=== PATIENT | female | born 1990 | race African-American/Black ===

== ENCOUNTER 2025-10-09 09:22 | Emergency (ER) | payer OTHER, SELFPAY ==
--- NOTE | ~2025-10-09 | US_ITS ---
EXAMINATION: US OB <=14 wk fetus w TV DATE: 10/09/2025 11:48 INDICATION: Abnormal bleeding during first trimester of TECHNIQUE: Real-time pelvic ultrasound utilizing both a transvaginal and transabdominal probe was performed. The interpreting radiologist was not present for the study. COMPARISON: None. FINDINGS: The uterus measures 14.2 x 8.7 x 8.3 cm. There is an intrauterine gestational sac. A yolk sac and pole are identified. The crown rump length measures 9 mm on the transvaginal imaging, which correlates with an estimated gestational age of 6 weeks and 6 days. The pole measurement on the transvaginal imaging however appears slightly exaggerated relative to the apparent size on the provided transabdominal imaging which measures roughly 4 to 5 mm and on which the sac and pole appear better delineated. heart motion was unable to be identified on the M-mode Doppler imaging however there is suggestion of some subtle motion at the pole on the cine grayscale imaging. Large heterogeneously hypoechoic uterine fibroids at the posterior body of the uterus measuring 7.9 cm in maximal diameter. The right ovary measures 3.4 x 3.3 x 2.8 cm. Vascular flow with arterial waveforms identified in the right ovary on color Doppler. The left ovary is not visualized. There is no free fluid in the pelvis. IMPRESSION: 1. Single intrauterine gestational sac with pole with indeterminate cardiac activity. 2. Gestational age by ultrasound based on measurement from the transvaginal imaging of 6 weeks 6 day(s) +/- 4 day(s) with ultrasound estimated date of delivery (CHELA) of 05/29/2026. The crown-rump length is however may be exaggerated, appearing subtly smaller of 4-5 mm on the transabdominal imaging. Consider short interval follow-ups ultrasound to reassess for estimated gestational age and confirm cardiac activity. 3. 7.9 cm uterine fibroid. Reviewed, dictated and finalized at location [facility]. [facility] IMPRESSION: 1. Single intrauterine gestational sac with pole with indeterminate cardi ac activity. 2. Gestational age by ultrasound based on measurement from the transvaginal im aging of 6 weeks 6 day(s) +/- 4 day(s) with ultrasound estimated date of delive ry (CHELA) of 05/29/2026. The crown-rump length is however may be exaggerated, appe aring subtly smaller of 4-5 mm on the transabdominal imaging. Consider short in terval follow-ups ultrasound to reassess for estimated gestational age and conf irm cardiac activity. 3. 7.9 cm uterine fibroid.
[2025-10-09 09:31] VITALS: BP 142/80; PULSE 87; RESP 16; TEMP 36.5; O2SAT 97
--- OUTSIDE RECORDS SUMMARY | 2025-10-09 10:23 | XMS_ITS | Clinical Summary ---
Author Organization [facility] Address [address] [place] [address] Phone Care Team Providers Care Water And Fire Technician Name Role Phone Molly Miller APRN, CNP Primary Care Provider [phone] Social History Tobacco Use Types Packs/Day Years Used Date Smoking Tobacco: Never Assessed Comments Unknown Sex and Gender Information Value Date Recorded Sex Assigned at Not on file Legal Sex Female 8:30 AM CDT Gender Identity Not on file Sexual Orientation Not on file Plan of Treatment Not on file Care Teams Water And Fire Technician Relationship Specialty Start Date End Date Molly Miller, CAROL NEELY [address] [address] PCP - General Advanced Practice Nurse 05/01/25
[2025-10-09 10:42] VITALS: BP 130/81; PULSE 91; RESP 18; O2SAT 100
[2025-10-09 10:48] LABS: Hematocrit 41.3 % (37.0-47.0); Hemoglobin 13.4 g/dL (12.0-15.0); Immature Granulocyte Percent A 0.4 % (0-0.5); Lymphocytes Absolute Auto 2.70 K/mm3 (0.9-3.2); Mean Corpuscular HGB Conc 32.4 g/dl (32-36); Mean Corpuscular Hemoglobin 27.5 pg (26-34); Mean Corpuscular Volume 84.6 fl (80-100); Nucleated Red Blood Cells Absolute Auto 0.000 K/mm3 (0.0-0.012); Nucleated Red Blood Cells Perc 0.0 % (0.0-0.2); Platelet Count Result 347 k/mm3 (150-375); Red Blood Count 4.88 M/mm3 (4.2-5.4); White Blood Count 7.7 K/mm3 (4.5-10.0)
[2025-10-09 10:51] LABS: Add Urine Microscopic? YES; Appearance Urine Clear (Clear); Glucose Urine UA Negative (Negative); Leukocyte Esterase Ur Trace LEU/UL (Negative); Nitrate Urine Negative (Negative); Non Pathogenic Casts 0-2; Specific Grav Ur 1.017 (1.001-1.035)
[2025-10-09 11:01] LABS: INR 1.0; Prothrombin Time 12.9 Seconds (11.1-14.7)
[2025-10-09 11:02] LABS: BEDSIDEPREGUCG Positive (Negative); Partial Thromboplastin Time 27.9 Seconds (22.3-36.8)
[2025-10-09 11:12] LABS: Alanine Aminotransferase 15 U/L (6-35); Albumin Level 4.3 g/dL (3.5-5.1); Alkaline Phosphatase 76 U/L (38-126); Anion Gap 8 mmol/L (4-12); Aspartate Amino Transferase 24 U/L (14-36); Bilirubin,Total 0.4 mg/dL (0.2-1.3); Blood Urea Nitrogen 11 mg/dL (7-17); Calcium 9.0 mg/dL (8.4-10.2); Carbon Dioxide 25 mmol/L (22-30); Chloride 102 mmol/L (98-107); Estimated CRCL calculation 104 ml/min; Estimated Glomerular Filt Rate > 60; Glucose 92 mg/dL (65-110); Potassium 3.9 mmol/L (3.4-5.0); Sodium 135 mmol/L (137-145); Total Protein 8.1 g/dL (6.3-8.2)
--- NOTE | 2025-10-09 12:16 | ED.PREGNANCY ---
HPI - General Chief complaint: Abdominal Pain Stated complaint: 6WKS PREG ABD PAIN/VAG BLEEDING Time Seen by Provider: 10/09/25 10:33 History of Present Illness HPI Narrative: Patient is a 35-year-old female who presents to the ER with abdominal cramping and vaginal spotting during . She reports she is approximately 6 weeks . Her last menstrual period was August 25, 2025. Patient reports she does not have an OBGYN established but she did see her primary care provider earlier today for an annual checkup. She reports her cramping and spotting started approximately 2 days ago. Patient denies any other medical history relevant to this ER visit. She reports she has never been before. Patient denies any recent fevers, abnormal vaginal discharge, or urinary symptoms. Related Data Home Medications ?Medication ?Instructions ?Recorded ?Confirmed ?Last Taken ?Type vitamins-iron fumarate 65 1 tablet PO DAILY 10/09/25 10/09/25 Unknown History mg iron-folic acid 1 mg tablet Allergies Allergy/AdvReac Type Severity Reaction Status Date / Time No Known Allergies Allergy Verified 10/09/25 09:23 Review of Systems Review of Systems: All systems reviewed & are unremarkable except as noted in HPI and below PMFSH Past Medical History Medical History Arthritis Fibroids Family History Family History Sibling Asthma Grandparent No problems noted. Grandparent No problems noted. Social History Social History Smoking status: Never smoker Alcohol intake: current Substance use: current Substance use type: unknown Exam Narrative: GENERAL: Well appearing, well-nourished, non-toxic, in no acute distress. HEAD: Normocephalic, atraumatic. NECK: Supple. No adenopathy, no masses. RESPIRATORY: Airway patent, respirations nonlabored. Clear to auscultation bilaterally, no rales, rhonchi, wheezing. CARDIOVASCULAR: Regular rate and rhythm without murmurs, rubs, or gallops. Peripheral pulses 2+ and equal bilaterally. ABDOMINAL: Soft, mildly tender lower quadrants, nondistended, no hepatosplenomegaly. Normoactive BS. MUSCULOSKELETAL: Moves all extremities. Strength/ROM intact without gross deformities. SKIN: Warm, dry, normal color. No rashes. NEURO: A&O X3. Speech clear. Cranial nerves II-XII intact. No ataxic movements. PSYCHIATRIC: Appropriate mood and affect. Normal interaction. Discharge Plan Discharge Clinical Impression: Vaginal spotting, First trimester , Threatened , Urinary tract infection Patient Disposition: Home Condition: Stable Instructions: Antibiotic Form, (ED), Urinary Tract Infection in (ED) Additional Instructions: Please return to the ER with any worsening symptoms. Follow-up with OBGYN as soon as possible for further evaluation and treatment. Please complete your full dose of antibiotics. You may take Tylenol as needed for pain control. Patient Language: Bahraini Prescriptions: New cephalexin 500 mg capsule 500 mg PO Q8H 7 Days Qty: 21 0RF No Action vit-iron fum-folic ac 65 mg iron- 1 mg tablet 1 tablet PO DAILY Follow-up/Referrals: Amelia Harvey APRN [Primary Care Provider, Internal Medicine] Cristhian Dalton MD [Physician, SHARPLES MACHINE OPERATOR] Ermias Vivas MD [Physician, SHARPLES MACHINE OPERATOR] Stand Alone Forms: Work/School Release IP Time of Disposition: 13:51 Course Vital Signs Vital signs: Vital Signs Temperature 36.5 C 10/09/25 09:31 Pulse Rate 87 10/09/25 09:31 Respiratory Rate 16 10/09/25 09:31 Blood Pressure 142/80 H 10/09/25 09:31 Pulse Oximetry 97 10/09/25 09:31 Temperature 36.5 C 10/09/25 09:31 Pulse Rate 91 10/09/25 10:42 Respiratory Rate 18 10/09/25 10:42 Blood Pressure 130/81 10/09/25 10:42 Pulse Oximetry 100 10/09/25 10:42 MDM MDM Narrative Medical decision making narrative: Patient is a 35-year-old female who presents to the ER with abdominal cramping and vaginal spotting during . She reports she is approximately 6 weeks . Her last menstrual period was August 25, 2025. Patient reports she does not have an OBGYN established but she did see her primary care provider earlier today for an annual checkup. She reports her cramping and spotting started approximately 2 days ago. Patient denies any other medical history relevant to this ER visit. She reports she has never been before. Patient denies any recent fevers, abnormal vaginal discharge, or urinary symptoms. Labs Ordered: CBC, CMP, UA, beta hCG Imaging Ordered: Pelvic ultrasound Medications Ordered: Tylenol p.o., Keflex p.o. Results: PT's US indicates 1. Single intrauterine gestational sac with pole with indeterminate cardiac activity. 2. Gestational age by ultrasound based on measurement from the transvaginal imaging of 6 weeks 6 day(s) +/- 4 day(s) with ultrasound estimated date of delivery (CHELA) of 05/29/2026. The crown-rump length is however may be exaggerated, appearing subtly smaller of 4-5 mm on the transabdominal imaging. Consider short interval follow-ups ultrasound to reassess for estimated gestational age and confirm cardiac activity. 3. 7.9 cm uterine fibroid. Diagnosis: Intrauterine , threatened miscarriage, urinary tract infection Consults:OBGYN (outpatient) Patient Education/Shared MDM: Results of lab work and imaging shared with patient. She endorses a headache at the time of examination. Patient will be given a dose of Tylenol. She will also be given her 1st dose of oral antibiotics here in the ER. Patient strongly advised to maintain hydration status upon discharge and follow-up with her OBGYN as soon as possible for further evaluation. She will be discharged home with a prescription for Keflex p.o. Strict return precautions provided. Patient verbalized understanding and is in agreement with plan. Vital signs stable at time of discharge. All questions answered. Differential Diagnosis Differential Diagnosis: Urinary tract infection, intrauterine , threatened miscarriage Lab Data MDM Lab Attestation statement: I personally reviewed the patient's lab results. 10/09/25 10:42 10/09/25 10:42 Labs: Lab Results 10/09/25 Range/Units 10:42 WBC 7.7 (4.5-10.0) K/mm3 RBC 4.88 (4.2-5.4) M/mm3 Hgb 13.4 (12.0-15.0) g/dL Hct 41.3 (37.0-47.0) % MCV 84.6 (80-100) fl MCH 27.5 (26-34) pg MCHC 32.4 (32-36) g/dl RDW 13.6 (11.5-14.5) % Plt Count 347 (150-375) k/mm3 MPV 9.6 (7.4-10.4) fl Immature Gran % (Auto) 0.4 (0-0.5) % Neut % (Auto) 58.1 (45.5-73.1) % Lymph % (Auto) 35.2 (18.3-44.2) % Hardeman % (Auto) 5.2 (2.6-8.5) % Eos % (Auto) 0.4 (0-4.4) % Baso % (Auto) 0.7 (0.2-1.2) % Lymph # (Auto) 2.70 (0.9-3.2) K/mm3 Hardeman # (Auto) 0.4 (0.1-0.6) K/mm3 Eos # (Auto) 0.0 (0-0.3) K/mm3 Baso # (Auto) 0.1 (0.0-0.1) K/mm3 Abs Immat Gran (auto) 0.03 (0.00-0.031) K/mm3 Absolute Neuts (auto) 4.5 (1.3-6.7) K/mm3 Absolute Nucleated RBC 0.000 (0.0-0.012) K/mm3 Nucleated RBC % 0.0 (0.0-0.2) % PT 12.9 (11.1-14.7) Seconds INR 1.0 APTT 27.9 (22.3-36.8) Seconds Sodium 135 L (137-145) mmol/L Potassium 3.9 (3.4-5.0) mmol/L Chloride 102 (98-107) mmol/L Carbon Dioxide 25 (22-30) mmol/L Anion Gap 8 (4-12) mmol/L BUN 11 (7-17) mg/dL Creatinine 0.75 (0.7-1.0) mg/dL Estim Creat Clear Calc 104 ml/min Estimated GFR > 60 (59 - ) Glucose 92 (65-110) mg/dL Calcium 9.0 (8.4-10.2) mg/dL Total Bilirubin 0.4 (0.2-1.3) mg/dL AST 24 (14-36) U/L ALT 15 (6-35) U/L Alkaline Phosphatase 76 (38-126) U/L Total Protein 8.1 (6.3-8.2) g/dL Albumin 4.3 (3.5-5.1) g/dL Beta HCG, Quant 17172.00 mIU/ML Urine Color Yellow (Yellow) Urine Appearance Clear (Clear) Urine pH 6.0 (5.0-9.0) Ur Specific Niles 1.017 (1.001-1.035) Urine Protein Negative (Negative) mg/dL Urine Glucose (UA) Negative (Negative) mg/dL Urine Ketones Negative (Negative) mg/dL Ur Blood (Man) Negative (Negative) Urine Nitrate Negative (Negative) Urine Bilirubin Negative (Negative) Urine Urobilinogen 0.2 (<2.0) mg/dL Leukocyte Esterase Rfl Trace H (Negative) SUKHJINDER/UL Urine RBC 0-2 (0-2) /hpf Urine WBC 11-20 H (0-3) /hpf Ur Squamous Epith Cells Few (Few) /hpf Urine Bacteria Rare /hpf Urine Casts 0-2 POC Urine HCG, Qual Positive (Negative) Blood Type B Positive Antibody Screen Negative Screen Not Reportable Baby's Blood Type Not Reportable Baby's MAURO Not Reportable Doses of RhIg Required 0 Imaging Data Attestation: I personally reviewed and interpreted this imaging study as follows: Radiologist's impression: ITS Impressions Obstetrics Ultrasound 10/09/25 12:07 IMPRESSION: 1. Single intrauterine gestational sac with pole with indeterminate cardiac activity. 2. Gestational age by ultrasound based on measurement from the transvaginal imaging of 6 weeks 6 day(s) +/- 4 day(s) with ultrasound estimated date of delivery (CHELA) of 05/29/2026. The crown-rump length is however may be exaggerated, appearing subtly smaller of 4-5 mm on the transabdominal imaging. Consider short interval follow-ups ultrasound to reassess for estimated gestational age and confirm cardiac activity. 3. 7.9 cm uterine fibroid.
[2025-10-09] MEDS: CEPHALEXIN 500 MG CAPSULE PO (13:55)
[2025-10-09] MEDS: ACETAMINOPHEN 500 MG TABLET 1000 MG PO (13:55)
[2025-10-09 14:00] VITALS: BP 126/64; PULSE 83; RESP 18; O2SAT 100
--- OUTSIDE RECORDS SUMMARY | 2025-10-09 14:07 | XMS_ITS | Clinical Summary ---
Author Organization [facility] [employer] [facility][1] [employer] Address [address] [place] [address] Care Team Providers Care Spring Internship Name Role Phone Pcp, No Primary Care Provider [phone] Allergies No known active allergies Medications No known medications Social History Tobacco Use Types Packs/Day Years Used Date Smoking Tobacco: Never Passive Smoke Exposure: Never Smokeless Tobacco: Never Tobacco Cessation:Counseling Given: Yes Alcohol Use Standard Drinks/Week Comments Yes 0 (1 standard drink = 0.6 oz pur e alcohol) Comments No Sex and Gender Information Value Date Recorded Sex Assigned at Not on file Legal Sex Female 3:41 PM EST Gender Identity Not on file Sexual Orientation Not on file Last Filed Vital Signs Vital Sign Reading Time Taken Comments Blood Pressure 119/80 06/30/2023 3:23 PM CDT Pulse 89 06/30/2023 3:23 PM CDT Temperature 36.4 C (97.6 F) 06/30/2023 3:23 PM CDT Respiratory Rate 18 06/30/2023 3:23 PM CDT Oxygen Saturation 99% 06/30/2023 3:23 PM CDT Inhaled Oxygen Concentration - - Weight 73.5 kg (162 lb) 06/30/2023 3:23 PM CDT Height 162.6 cm (5' 4) 06/30/2023 3:23 PM CDT Body Mass Index 27.81 06/30/2023 3:23 PM CDT Plan of Treatment Health Maintenance Due Date Last Done Comments Depression: Screening Annual ly using PHQ-2/9 in Adults 18 yrs or above (or HM Modifier)([facility]) 02/03/2010 Hepatitis C Virus Infection in Adolescents and Adults: Screening (or Modifier) ([facility]) 02/03/2010 SDOH Screening Reminder: Alejandra ually for all adults ([facility]) 02/03/2010 Tobacco Smoking Cessation: i n Adults excluding Women: Behavioral and Pharmacotherapy Interventions ([facility]) 02/03/2010 DTaP/Tdap/Td Vaccines ([facility]) (1 - Tdap) 02/03/2011 Cervical Cancer Screenin 1-65 yrs of age (or Modifier) 02/03/2013 Cervical Cancer Screening: P ap every 3 yrs pts age 21-65 02/03/2013 Cervical Cancer: Pap Screeni ng with Modifier timing ([facility]) 02/03/2013 Cervical Cancer: hrHPV alone or with cotesting Pap for Pts 30-65yrs screening every 5yrs ([facility]) 02/03/2013 Flu Vaccination: Yearly for ages 18mos through 64 years (or Modifier)([facility]) 05/24/2025 COVID-19 Vaccine Screening: Initial Series and Booster Status ([facility]) ( - 2024- season) 2025 Zoster/Shingles Vaccine Seri es Screening: Adults aged 18+ yrs (or HM Modifiers)([facility]) (1 of 2) 02/03/2042 Pneumococcal Vaccination Scr eening: Pts 0-19 & 19-49 yrs of age ([facility]) Aged Out No longer eligible based on patient's age to complete this topic Medical Devices Not on file Insurance [facility] Care Teams Spring Internship Relationship Specialty Start Date End Date Pcp, No PCP - General Family Medicine 11/01/20
--- OUTSIDE RECORDS SUMMARY | 2025-10-09 14:07 | XMS_ITS | Clinical Summary ---
Author Organization [facility] Address [address] [place] [address] Phone Care Team Providers Care Web Marketing Specialist Name Role Phone Molly Miller APRN, CNP Primary Care Provider [phone] Social History Tobacco Use Types Packs/Day Years Used Date Smoking Tobacco: Never Assessed Comments Unknown Sex and Gender Information Value Date Recorded Sex Assigned at Not on file Legal Sex Female 8:30 AM CDT Gender Identity Not on file Sexual Orientation Not on file Plan of Treatment Not on file Care Teams Web Marketing Specialist Relationship Specialty Start Date End Date Molly Miller, CAROL NEELY [address] [address] PCP - General Advanced Practice Nurse 05/01/25
== END 2025-10-09 14:00 | disposition home or self-care (01) ==
PROVIDERS: Emergency Provider Registered Nurse; PCP Nurse Practitioner Family
DX: O20.0 Threatened abortion (principal); O23.41 Unspecified infection of urinary tract in pregnancy, first trimester; N39.0 Urinary tract infection, site not specified; O99.891 Other specified diseases and conditions complicating pregnancy; D25.9 Leiomyoma of uterus, unspecified; Z3A.01 Less than 8 weeks gestation of pregnancy
CPT/HCPCS: 36415; 76801; 76817; 80053; 81001; 81025; 84702; 85025; 85461; 85610; 85730; 86850; 86900; 86901; 87086; 99284; A9270